=== PATIENT | male | born 1945 | race Caucasian/White ===

== ENCOUNTER 2020-10-27 10:10 | Emergency (ER) | payer MEDICARE, OTHER ==
--- NOTE | 2020-10-27 10:38 | ED Physician Documentation ---
PD HPI CHEST PAIN - Stated complaint Stated Complaint: NAUSEA - Chief complaint Chief Complaint: Cardiac - History obtained from History obtained from: Patient - Additional information Additional information: 75-year-old gentleman with history of prostate issues but no history of heart problems. He had an episode of dizziness this morning that brought him to the hospital. It started around 2:30 in the morning. He was lightheaded like he was going to pass out. It was associated with chest pressure and palpitations of a rapid irregular nature. It went away about an hour ago. He feels fine no w. States he had a much shorter episode a few days ago lasting about an hour and a half. He also had a similar episode in August 2019, he had a thorough work- up which included echo and stress without pertinent positive findings but like now he was asymptomatic on arrival to the hospital. Review of Systems Ten Systems: 10 systems reviewed and negative Constitutional: reports: Reviewed and negative Eyes: reports: Reviewed and negative Ears: reports: Reviewed and negative Nose: reports: Reviewed and negative Throat: reports: Reviewed and negative Cardiac: reports: Chest pain / pressure (gone), Palpitations (gone). denies: Pedal edema, Calf pain Respiratory: denies: Dyspnea PD PAST MEDICAL HISTORY - Present Medications Home Medications: Ambulatory Orders Medication Instructions Recorded Confirmed Finasteride [Proscar] 5 mg PO DAILY 10/27/20 10/27/20 Meloxicam [Mobic] 1 tablet PO DAILY 10/27/20 10/27/20 Terazosin [Hytrin] 5 mg PO DAILY 10/27/20 10/27/20 - Allergies Allergies/Adverse Reactions: Allergies Allergy/AdvReac Type Severity Reaction Status Date / Time No Known Drug Allergies Allergy Verified 10/27/20 10:16 PD ED PE NORMAL - Vitals Vital signs reviewed: Yes - General General: Alert and oriented X 3, No acute distress - HEENT HEENT: PERRL, EOMI - Neck Neck: Supple, no meningeal sign, No bony TTP - Cardiac Cardiac: Other (Frequent ectopy, no murmur) - Respiratory Respiratory: No respiratory distress, Clear bilaterally - Abdomen Abdomen: Soft, Non tender - Back Back: No CVA TTP, No spinal TTP - Derm Derm: Normal color, Warm and dry - Neuro Neuro: Alert and oriented X 3, Normal speech - Psych Psych: Normal mood, Normal affect Results - Vitals Vitals: Vital Signs - 24 hr 08/04/21 08/04/21 08/04/21 10:16 10:48 12:29 Temperature 36 C L Heart Rate 84 71 62 Respiratory 18 16 15 Rate Blood Pressure 138/57 H 121/90 H 97/67 O2 Saturation 98 98 98 Oxygen O2 Source Room air - EKG (time done) 1034 Rate: Rate (enter#) (77) Rhythm: NSR (with supraventricular bigeminy) [place]: Normal Intervals: Normal NV QRS: Normal Ischemia: Normal ST segments - Labs Labs: Laboratory Tests 10/27/20 10/27/20 10/27/20 10:35 10:35 10:35 WBC 5.9 RBC 5.13 Hgb 16.4 Hct 48.5 MCV 94.5 H MCH 32.0 H MCHC 33.8 RDW 12.1 Plt Count 194 MPV 9.0 Neut # (Auto) 4.2 Lymph # (Auto) 1.2 L Mitchell # (Auto) 0.5 Eos # (Auto) 0.1 Baso # (Auto) 0.0 Absolute Nucleated RBC 0.00 Nucleated RBC % 0.0 Sodium 140 Potassium 4.1 Chloride 103 Carbon Dioxide 27 Anion Gap 10.0 BUN 22 H Creatinine 0.9 Estimated GFR (MDRD) 82 L Glucose 108 H Calcium 9.5 Total Bilirubin 0.7 AST 19 ALT 17 Alkaline Phosphatase 57 Troponin I High Sens 3.1 Total Protein 7.5 Albumin 4.8 Globulin 2.7 Albumin/Globulin Ratio 1.8 Lipase 35 TSH 10/27/20 10:35 WBC RBC Hgb Hct MCV MCH MCHC RDW Plt Count MPV Neut # (Auto) Lymph # (Auto) Mitchell # (Auto) Eos # (Auto) Baso # (Auto) Absolute Nucleated RBC Nucleated RBC % Sodium Potassium Chloride Carbon Dioxide Anion Gap BUN Creatinine Estimated GFR (MDRD) Glucose Calcium Total Bilirubin AST ALT Alkaline Phosphatase Troponin I High Sens Total Protein Albumin Globulin Albumin/Globulin Ratio Lipase TSH 1.81 PD MEDICAL DECISION MAKING - ED course ED course: His description is consistent with probably paroxysmal atrial fibrillation. No abnormalities on exam here except for frequent supraventricular ectopy. I discussed it with the [facility] physician after some delays since his form of [facility] is in [place] and they have arranged for temporary coverage in [place] and will have [facility] reach out to him for an appointment and presume Holter monitoring. Departure - Departure Disposition: Home, Self Care Clinical Impression: Chest pain Condition: Good Record reviewed to determine appropriate education?: Yes Instructions: ED Paroxysmal Atrial Flutter Comments: As discussed, I suspect that you are having symptomatic paroxysmal atrial fibrillation although we are unable to identify that since you are not in it now. I have called [facility] and they should be not having it now reaching out to you to set you up with a Holter monitor probably out of the [facility]. Return if worsening. Continue baby aspirin a day.
[2020-10-27 10:44] LABS: BASOPHILS % (AUTO) 0.3 %; EOSINOPHILS # (AUTO) 0.1 10^3/uL (0.0-0.7); HCT - HEMATOCRIT 48.5 % (42.0-52.0); HGB - HEMOGLOBIN 16.4 g/dL (14.0-18.0); LYMPHOCYTES # (AUTO) 1.2 10^3/uL (1.5-3.5); LYMPHOCYTES % (AUTO) 19.4 %; MEAN CORPUSCULAR HGB CONC 33.8 g/dL (32.0-36.0); MEAN CORPUSCULAR VOLUME 94.5 fL (80.0-94.0); MONOCYTES # (AUTO) 0.5 10^3/uL (0.0-1.0); MONOCYTES % (AUTO) 9.1 %; NEUTROPHILS # (AUTO) 4.2 10^3/uL (1.5-6.6); PLT - PLATELET COUNT 194 10^3/uL (130-450); RED BLOOD COUNT 5.13 10^6/uL (4.70-6.10); RED CELL DISTRIBUTION WIDTH 12.1 % (12.0-15.0); WHITE BLOOD COUNT 5.9 x10^3/uL (4.8-10.8)
[2020-10-27 10:59] LABS: ALBUMIN 4.8 g/dL (3.2-5.5); ALBUMIN/GLOBULIN RATIO 1.8 (1.0-2.2); BILIRUBIN,TOTAL 0.7 mg/dL (0.2-1.0); CALCIUM 9.5 mg/dL (8.5-10.3); CREATININE 0.9 mg/dL (0.6-1.2); POTASSIUM 4.1 mmol/L (3.5-5.0); TOTAL PROTEIN 7.5 g/dL (6.7-8.2)
[2020-10-27 12:30] VITALS: BP 97/67
== END 2020-10-27 13:14 | disposition home or self-care (01) ==
LOC: ED 10:10
DX: R07.9 Chest pain, unspecified (principal)
CPT/HCPCS: 36415; 80053; 83690; 84443; 84484; 85025; 93005; 99284